=== PATIENT | female | born 1990 | race Two or more races ===

== ENCOUNTER 2018-11-18 21:11 | Emergency (ER) | payer BC, OTHER ==
[~2018-11-18] VITALS: Ht 172.7 cm; Wt 104.3 kg
[2018-11-18] MEDS ORDERED: EPINEPHrine HCL 1 MG/1 ML AMP SC ONE (21:45)
[2018-11-18] MEDS ORDERED: methylPREDNISolone SOD SUCC 125 MG/2 ML VL IV ONE (21:45)
[2018-11-18] MEDS ORDERED: diphenhdrAMINE HCL 50 MG/1 ML VL IV ONE (21:45)
[2018-11-18] MEDS ORDERED: FAMOTIDINE (10MG/ML) 2ML VL IV ONE (21:45)
[2018-11-19 00:08] VITALS: BP 150/72
== END 2018-11-19 00:09 | disposition home or self-care (01) ==
LOC: ER 21:11 → EDBD 21:11 → ER 11-19 00:09
DX: T78.1XXA Other adverse food reactions, not elsewhere classified, initial encounter (principal); R20.2 Paresthesia of skin; R22.1 Localized swelling, mass and lump, neck; L29.9 Pruritus, unspecified; Z88.0 Allergy status to penicillin; X58.XXXA Exposure to other specified factors, initial encounter
CPT/HCPCS: 96372; 96374; 96375; 99283; J0171; J1200; J2930; J3490

== ENCOUNTER 2020-01-27 00:28 | Emergency (ER) | payer OTHER ==
[~2020-01-27] VITALS: Ht 172.7 cm; Wt 95.3 kg
[2020-01-27 01:30] VITALS: BP 128/85
== END 2020-01-27 03:45 | disposition home or self-care (01) ==
LOC: ER 00:28
DX: M54.2 Cervicalgia (principal); M54.6 Pain in thoracic spine; R07.89 Other chest pain; V43.52XA Car driver injured in collision with other type car in traffic accident, initial encounter; Y93.89 Activity, other specified; Y92.488 Other paved roadways as the place of occurrence of the external cause; Y99.8 Other external cause status
CPT/HCPCS: 72040; 72070